=== PATIENT | male | born 1950 | race Caucasian/White ===

== ENCOUNTER → 2021-01-03 | Outpatient (CLI) | payer MEDICARE, OTHER ==
[~2021-01-03] MED LIST: ACAI500C PO; METO50TA82 PO; MULT-658 PO; ZINC50CA PO; echinacea PO
[2021-01-03 11:06] LABS: BASOPHILS % (AUTO) 1 % (0-1); EOSINOPHILS % (AUTO) 1 % (1-7); LYMPHOCYTES % (AUTO) 23 % (22-44); MEAN CORPUSCULAR HEMOGLOBIN 31.3 pg (27.5-34.5); MEAN CORPUSCULAR HGB CONC 33.7 g/dL (33.2-36.2); MEAN PLATELET VOLUME 7.8 fL (7.4-10.4); MONOCYTES % (AUTO) 14 % (2-9); NEUTROPHILS % (AUTO) 61 % (42-75); PLATELET COUNT 219 x10^3/uL (130-400); RED BLOOD COUNT 5.06 x10^6/uL (4.38-5.82)
[2021-01-03 11:09] LABS: MD NO
[2021-01-03 11:12] LABS: MICROSCOPIC AUTO
[2021-01-03 11:19] LABS: ANION GAP 5 mmol/L (5-15); CALCIUM 9.4 mg/dL (8.5-10.1); CHLORIDE 105 mmol/L (98-107)
[2021-01-03 11:20] LABS: CREATININE 1.27 mg/dL (0.7-1.3)
== END | disposition home or self-care (01) ==
LOC: STAR 10:03
PROVIDERS: ATTEND Urology
DX: Z01.818 Encounter for other preprocedural examination (principal); N20.0 Calculus of kidney; R94.31 Abnormal electrocardiogram [ECG] [EKG]; Z20.822 Contact with and (suspected) exposure to COVID-19
CPT/HCPCS: 80048; 81001; 85025; 87086; 87635; 93005

== ENCOUNTER 2021-01-23 09:21 | Day surgery (SDC) | payer MEDICARE ==
[~2021-01-23] VITALS: Ht 172.7 cm; Wt 82.5 kg
[2021-01-23] MEDS ORDERED: FENTANYL PF 100 MCG/2ML ONE (09:27)
[2021-01-23] MEDS ORDERED: MIDAZOLAM 1 MG/ML, 2ML ONE (09:27)
[2021-01-23] MEDS ORDERED: PROPOFOL 10 MG/ML, 20ML ONE (09:28)
[2021-01-23] MEDS ORDERED: ONDANSETRON 2MG/ML, 2ML ONE (09:33)
[2021-01-23 09:54] VITALS: BP 136/87
[2021-01-23] MEDS ORDERED: CHLORHEXIDINE 15 ML UDC MM ONE (10:00)
[2021-01-23] MEDS ORDERED: LACTATED RINGERS 1,000 ML IV SCH (10:00)
[2021-01-23] MEDS ORDERED: METOPROLOL ER PO (10:07)
[2021-01-23] MEDS ORDERED: CEFAZOLIN 1,000 MG ONE (10:23)
[2021-01-23] MEDS ORDERED: MEPERIDINE/PF 25MG/0.5ML IVPush PRN (10:30)
[2021-01-23] MEDS ORDERED: DIPHENHYDRAMINE 50 MG/ML, 1ML IVPush PRN (10:30)
[2021-01-23] MEDS ORDERED: PROMETHAZINE 25 MG/ML, 1ML IVPush PRN (10:30)
[2021-01-23] MEDS ORDERED: DIAZEPAM 5 MG/ML, 2ML IVPush PRN (10:30)
[2021-01-23] MEDS ORDERED: HYDROmorphone 1 MG/ML, 1ML INJ IVPush PRN (10:30)
[2021-01-23] MEDS ORDERED: FENTANYL PF 100 MCG/2ML IV PRN (10:30)
[2021-01-23] MEDS ORDERED: LABETALOL 5MG/ML, 20ML IV PRN (10:30)
[2021-01-23] MEDS ORDERED: hydrALAzine 20 MG/ML, 1ML IV PRN (10:30)
[2021-01-23] MEDS ORDERED: ONDANSETRON 2MG/ML, 2ML IVPush PRN (10:30)
[2021-01-23] MEDS ORDERED: ACETAMINOPHEN 325 MG TABLET PO PRN (10:30)
[2021-01-23] MEDS ORDERED: OXYcodone 5 MG/5 ML ORAL.SOL UDC PO PRN (10:30)
[2021-01-23] MEDS ORDERED: DEXAMETHASONE 4 MG/ML, 1ML ONE (10:34)
[2021-01-24] MEDS ORDERED: MULTIVITAMIN 1 TABLET PO SCH (09:00)
== END 2021-01-23 14:45 | disposition home or self-care (01) ==
LOC: OUT 09:21
PROVIDERS: ATTEND Urology
DX: N20.1 Calculus of ureter (principal); I48.91 Unspecified atrial fibrillation; E78.5 Hyperlipidemia, unspecified; Z79.01 Long term (current) use of anticoagulants; Z88.0 Allergy status to penicillin; Z88.8 Allergy status to other drugs, medicaments and biological substances; Z79.899 Other long term (current) drug therapy; Z20.822 Contact with and (suspected) exposure to COVID-19; Z98.890 Other specified postprocedural states
CPT/HCPCS: 50590; 52352; 82360; 88300; J0690; J1100; J2250; J2405; J2704; J3010; J7120; U0003